=== PATIENT | male | born 2000 ===

== ENCOUNTER 2023-12-26 15:21 | Outpatient (CLI) | payer MEDICARE, MEDICAID ==
--- NOTE | 2023-12-26 18:37 | XRAY Report ---
PROCEDURE: Hips w/Pelvis 2-3V BL INDICATIONS: HIP PAIN TECHNIQUE: 3 view(s) of the hip were acquired. COMPARISON: None FINDINGS: Bones: No fractures or dislocations. No suspicious bony lesions. The visualized pelvic ring appear s intact. Soft tissues: No suspicious soft tissue calcifications or masses. IMPRESSION: No visualized acute fracture or dislocation. However, occult injury cannot be excluded. Recommend sudheer rt interval imaging follow-up in 7-10 days as clinically indicated for additional evaluation. Reviewed by: Bella Hurley MD on 12/26/2023 6:35 PM PST Approved by: Bella Hurley MD on 12/26/2023 6:35 PM PST Station ID: [id number]
--- NOTE | 2023-12-26 18:37 | XRAY Report ---
PROCEDURE: Knee 1-2V BL INDICATIONS: KNEE PAIN TECHNIQUE: 2 views of the knee(s) were acquired. COMPARISON: None. FINDINGS: No erosions. Bones: No fractures or dislocations. No suspicious bony lesions. Minimal tricompartmental narrowi ng possibly positional. Soft tissues: Minimal knee joint effusion. No suspicious soft tissue calcifications or masses. IMPRESSION: No acute bony abnormality. Reviewed by: Bella Hurley MD on 12/26/2023 6:36 PM PST Approved by: Bella Hurley MD on 12/26/2023 6:36 PM PST Station ID: [id number]
== END 2023-12-26 15:22 | disposition home or self-care (01) ==
LOC: DI 15:21
PROVIDERS: ATTEND Family Medicine
DX: M21.752 Unequal limb length (acquired), left femur (principal); M25.569 Pain in unspecified knee; M25.559 Pain in unspecified hip; M25.469 Effusion, unspecified knee

== ENCOUNTER 2024-01-17 12:19 | Outpatient (CLI) | payer MEDICARE, MEDICAID ==
--- NOTE | 2024-01-17 13:04 | XRAY Report ---
PROCEDURE: Hips w/Pelvis 2-3V BL INDICATIONS: HIP JOINT PXFUL ON MOVEMENT TECHNIQUE: 3 view(s) of the hip were acquired. COMPARISON: None FINDINGS: Bones: No fractures or dislocations. No suspicious bony lesions. The visualized pelvic ring appear s intact. Soft tissues: No suspicious soft tissue calcifications or masses. IMPRESSION: No acute bony abnormality. Reviewed by: William Cooper MD on 01/17/2024 1:03 PM PDT Approved by: William Cooper MD on 01/17/2024 1:03 PM PDT Station ID: [id number]
== END 2024-01-17 12:20 | disposition home or self-care (01) ==
LOC: DI 12:19
PROVIDERS: ATTEND Family Medicine
DX: M25.551 Pain in right hip (principal); M25.552 Pain in left hip